=== PATIENT | female | born 1940 | race Caucasian/White ===

== ENCOUNTER 2016-11-07 14:50 | Emergency (ER) | payer MEDICARE ==
[2016-11-07] MEDS ORDERED: Aspirin Low Dose CHEW TAB* 81 MG PO ONE (15:48)
[2016-11-07 16:01] LABS: Hematocrit 39 % (35-47); Hemoglobin 12.8 g/dl (12.0-16.0); Mean Corpuscular HGB Conc 33 g/dl (31-36); Mean Corpuscular Hemoglobin 31 pg (27-31); Mean Corpuscular Volume 95 fL (80-97); Mean Platelet Volume 10 um3 (7.4-10.4); Red Blood Count 4.11 10^6/ul (4.0-5.4); Red Cell Distribution Width 13 % (10.5-15)
[2016-11-07 16:12] LABS: Albumin 3.8 g/dL (3.2-5.2); Calcium 8.9 mg/dL (8.6-10.3); EGFR African American 69.7 (>60); EGFR Non-African American 54.2 (>60); Globulin 3.3 g/dL (2-4); Potassium 3.9 mmol/L (3.5-5.0); Total Bilirubin 0.3 mg/dL (0.2-1.0); Total Protein 7.1 g/dL (6.4-8.9)
[2016-11-07 16:14] LABS: Troponin I 0.01 ng/mL (<0.04)
--- NOTE | 2016-11-07 16:19 | RAD ---
INDICATION: Chest pain COMPARISON: April 14, 2011 TECHNIQUE: An AP portable view obtained at 1600 hours is submitted. FINDINGS: Bones/Soft Tissues: There are no acute bony findings. Cardiomediastinal: The cardiomediastinal silhouette is normal. Lungs: There are no infiltrates. Pleura: There are no pleural effusions. Other: None IMPRESSION: NO ACTIVE DISEASE.
[2016-11-07 16:23] LABS: TSH (Thyroid Stimulating Horm) 5.28 mcIU/mL (0.34-5.60)
[2016-11-07 20:17] VITALS: BP 140/62
--- NOTE | 2016-11-07 22:34 | ED ---
Lavelle Goldberg Aidan, scribed for Pietro Bourgeois MD on 11/07/16 at 1558 . HPI Chest Pain - HPI Summary HPI Summary: 76 y/o female presents to the ED with a complaint of acute, constant, mild (3/10 ), mid-sternal CP described as sharp and achy that began at 1420 today. There are no aggravating or alleviating factors to her CP. Associated symptoms include fatigue, confusion, nausea, and mild diaphoresis during the onset of her CP. Pt denies any difficulty breathing. Additionally, according to one of the patients family members, she has been complaining of abdominal pain for the past several weeks and had diarrhea. 2 days ago, she was guarding from lower abdominal pain. - History of Current Complaint Chief Complaint: EDChestPainROMI Time Seen by Provider: 11/07/16 15:29 Hx Obtained From: Patient, Family/National Sales Consultant Onset/Duration: Started Hours Ago - 1420 today, Still Present Time of Onset: 14:20 - today Timing: Constant Initial Severity: Mild Current Severity: Mild Pain Intensity: 2 - 3 was reported on the nurses note Pain Scale Used: 0-10 Numeric Chest Pain Location: Mid Sternal Chest Pain Radiates: No Character: Dull/Aching - aching, Sharp/Stabbing - sharp Aggravating Factor(s): Other: - unknown Alleviating Factor(s): Other: - unknown Associated Signs and Symptoms: Positive: Chest Pain - mid-sternal, Diaphoresis - mild, during onset, Nausea, Abdominal Pain, Other: - fatigue, confusion, diarrhea - Allergy/Home Medications Allergies/Adverse Reactions: Allergies Allergy/AdvReac Type Severity Reaction Status Date / Time Prednisone Allergy Agitation Verified 04/15/14 10:17 PMH/Surg Hx/FS Hx/Imm Hx Endocrine/Hematology History: Denies: Hx Diabetes, Hx Thyroid Disease Cardiovascular History: Denies: Hx Hypercholesterolemia, Hx Hypertension, Hx Peripheral Vascular Disease Respiratory History: Denies: Hx Asthma, Hx Chronic Obstructive Pulmonary Disease (COPD) GI History: Denies: Hx Ulcer Musculoskeletal History: Denies: Hx Arthritis, Hx Rheumatoid Arthritis, Hx Osteoporosis Sensory History: Denies: Hx Cataracts, Hx Contacts or Glasses, Hx Glaucoma Opthamlomology History: Denies: Hx Cataracts, Hx Contacts or Glasses, Hx Glaucoma Neurological History: Denies: Hx Headaches, Hx Seizures, Hx Transient Ischemic Attacks (TIA) Psychiatric History: Denies: Hx Anxiety, Hx Depression - Cancer History Hx Chemotherapy: No Hx Radiation Therapy: No Infectious Disease History: No Infectious Disease History: Denies: Hx Hepatitis, Hx Human Immunodeficiency Virus (HIV), Traveled Outside the [place] in Last 30 Days - Family History Known Family History: Positive: Hypertension - Social History Occupation: Retired Lives: With Family Alcohol Use: None Hx Substance Use: No Substance Use Type: Reports: None Hx Tobacco Use: No Smoking Status (MU): Never Smoked Tobacco Review of Systems Positive: Fatigue, Skin Diaphoresis - during onset of CP. Negative: Fever, Chills Eyes: Negative ENT: Negative Positive: Chest Pain. Negative: Palpitations Respiratory: Negative Positive: Abdominal Pain, Diarrhea, Nausea. Negative: Vomiting Genitourinary: Negative Musculoskeletal: Negative Skin: Negative Neurological: Other - confusion Negative: Headache, Weakness, Paresthesia, Numbness, Syncope, Slurred Speech Psychological: Normal All Other Systems Reviewed And Are Negative: Yes Physical Exam Triage Information Reviewed: Yes Vital Signs On Initial Exam: Initial Vitals BP 163/66 11/07/16 15:03 Vital Signs Reviewed: Yes Appearance: Positive: Well-Appearing, No Pain Distress Skin: Positive: Warm, Skin Color Reflects Adequate Perfusion, Dry Head/Face: Positive: Normal Head/Face Inspection Eyes: Positive: Normal ENT: Positive: Normal ENT inspection Neck: Positive: Supple, Nontender Respiratory/Lung Sounds: Positive: Clear to Auscultation, Breath Sounds Present Cardiovascular: Positive: RRR Abdomen Description: Positive: Nontender, Soft Bowel Sounds: Positive: Present Musculoskeletal: Positive: Normal Neurological: Positive: Normal Psychiatric: Positive: Affect/Mood Appropriate - [place] Coma Scale Coma Scale Total: 15 Diagnostics - Vital Signs Vital Signs Temp Pulse Resp BP Pulse Ox 11/07/16 15:30 74 8 149/72 98 11/07/16 15:27 98.4 F 70 14 149/72 97 11/07/16 15:18 81 98 11/07/16 15:16 156/71 11/07/16 15:03 163/66 - Laboratory Lab Results: Lab Results 11/07/16 11/07/16 11/07/16 Range/Units 15:19 15:19 15:19 WBC 5.0 (3.5-10.8) 10^3/ul RBC 4.11 (4.0-5.4) 10^6/ul Hgb 12.8 (12.0-16.0) g/dl Hct 39 (35-47) % MCV 95 (80-97) fL MCH 31 (27-31) pg MCHC 33 (31-36) g/dl RDW 13 (10.5-15) % Plt Count 202 (150-450) 10^3/ul MPV 10 (7.4-10.4) um3 Neut % (Auto) 65.0 (38-83) % Lymph % (Auto) 23.4 L (25-47) % [place] % (Auto) 8.4 (1-9) % Eos % (Auto) 2.2 (0-6) % Baso % (Auto) 1.0 (0-2) % Absolute Neuts (auto) 3.2 (1.5-7.7) 10^3/ul Absolute Lymphs (auto) 1.2 (1.0-4.8) 10^3/ul Absolute Monos (auto) 0.4 (0-0.8) 10^3/ul Absolute Eos (auto) 0.1 (0-0.6) 10^3/ul Absolute Basos (auto) 0.1 (0-0.2) 10^3/ul Absolute Nucleated RBC 0 10^3/ul Nucleated RBC % 0 INR (Anticoag Therapy) 0.89 (0.89-1.11) Sodium 137 (133-145) mmol/L Potassium 3.9 (3.5-5.0) mmol/L Chloride 105 (101-111) mmol/L Carbon Dioxide 26 (22-32) mmol/L Anion Gap 6 (2-11) mmol/L BUN 19 (6-24) mg/dL Creatinine 1.00 H (0.51-0.95) mg/dL Est GFR ( Amer) 69.7 (>60) Est GFR (Non-Af Amer) 54.2 (>60) BUN/Creatinine Ratio 19.0 (8-20) Glucose 120 H (70-100) mg/dL Lactic Acid (0.5-2.0) mmol/L Calcium 8.9 (8.6-10.3) mg/dL Total Bilirubin 0.30 (0.2-1.0) mg/dL AST 22 (13-39) U/L ALT 23 (7-52) U/L Alkaline Phosphatase 57 (34-104) U/L Troponin I 0.01 (<0.04) ng/mL Total Protein 7.1 (6.4-8.9) g/dL Albumin 3.8 (3.2-5.2) g/dL Globulin 3.3 (2-4) g/dL Albumin/Globulin Ratio 1.2 (1-3) Lipase 39 (11.0-82.0) U/L TSH 5.28 (0.34-5.60) mcIU/mL 11/07/16 11/07/16 Range/Units 15:19 18:50 WBC (3.5-10.8) 10^3/ul RBC (4.0-5.4) 10^6/ul Hgb (12.0-16.0) g/dl Hct (35-47) % MCV (80-97) fL MCH (27-31) pg MCHC (31-36) g/dl RDW (10.5-15) % Plt Count (150-450) 10^3/ul MPV (7.4-10.4) um3 Neut % (Auto) (38-83) % Lymph % (Auto) (25-47) % [place] % (Auto) (1-9) % Eos % (Auto) (0-6) % Baso % (Auto) (0-2) % Absolute Neuts (auto) (1.5-7.7) 10^3/ul Absolute Lymphs (auto) (1.0-4.8) 10^3/ul Absolute Monos (auto) (0-0.8) 10^3/ul Absolute Eos (auto) (0-0.6) 10^3/ul Absolute Basos (auto) (0-0.2) 10^3/ul Absolute Nucleated RBC 10^3/ul Nucleated RBC % INR (Anticoag Therapy) (0.89-1.11) Sodium (133-145) mmol/L Potassium (3.5-5.0) mmol/L Chloride (101-111) mmol/L Carbon Dioxide (22-32) mmol/L Anion Gap (2-11) mmol/L BUN (6-24) mg/dL Creatinine (0.51-0.95) mg/dL Est GFR ( Amer) (>60) Est GFR (Non-Af Amer) (>60) BUN/Creatinine Ratio (8-20) Glucose (70-100) mg/dL Lactic Acid 0.9 (0.5-2.0) mmol/L Calcium (8.6-10.3) mg/dL Total Bilirubin (0.2-1.0) mg/dL AST (13-39) U/L ALT (7-52) U/L Alkaline Phosphatase (34-104) U/L Troponin I 0.01 (<0.04) ng/mL Total Protein (6.4-8.9) g/dL Albumin (3.2-5.2) g/dL Globulin (2-4) g/dL Albumin/Globulin Ratio (1-3) Lipase (11.0-82.0) U/L TSH (0.34-5.60) mcIU/mL Result Diagrams: 11/07/16 15:19 11/07/16 15:19 Lab Statement: Any lab studies that have been ordered have been reviewed, and results considered in the medical decision making process. - Radiology CHEST X-RAY Xray Interpretation: No Acute Changes - IMPRESSION: No active disease Radiology Interpretation Completed By: Radiologist - EKG EKG 1457 Cardiac Rate: NL - 91 BPM EKG Rhythm: Sinus Rhythm EKG Interpretation: NORMAL SINUS RHYTHM WITH NONSPECIFIC CHANGES DIFFUSELY Re-Evaluation - Re-Evaluation First Eval Re-Evaluation Time: 17:05 - On re-evaluation, the patient was much more lively and claimed to be feeling much better. Change: Improved Chest Pain Course/Dx - Course Course Of Treatment: This is a 76 y/o female presenting with acute, mid-sternal CP that began roughly at 1420 today. She also mentions mild diaphoresis during onset, confusion, fatigue, and nausea. According to a family member, she has had abdominal pain and diarrhea for the past several days. Her examination was normal and Her EKG revealed NSR with nonspecific changes diffusely. Chest x-ray results were negative. Hematology indicated a lymph % of 23.4 (L), while chemistry revealed a creatinine level of 1.00 (H) and a glucose level of 120 (H) . Her troponin 1 was 0.01. A repeat troponin was unchanged at 3 hours and she wants to go home. offered an OBV to consider stress testing tomorrow as she is flying to [place] in about a week but she declined. - Diagnoses Provider Diagnoses: Chest pain Discharge - Discharge Plan Condition: Stable Disposition: HOME Discharge Disposition Comment: Please follow up with your primary care provider within 2 days. Patient Education Materials: Chest Pain (ED) Referrals: Iker Leon MD [Primary Care Provider] - The documentation as recorded by the Lavelle mahoney Aidan accurately reflects the service I personally performed and the decisions made by me, Pietro Bourgeois MD.
== END 2016-11-07 20:17 | disposition home or self-care (01) ==
LOC: ED 14:50
DX: R07.9 Chest pain, unspecified (principal); R10.9 Unspecified abdominal pain; R61 Generalized hyperhidrosis; R41.0 Disorientation, unspecified; R11.0 Nausea; R19.7 Diarrhea, unspecified
CPT/HCPCS: 36415; 71010; 80053; 83605; 83690; 84443; 84484; 85025; 85610; 93005; 99283; A9270-GY